=== PATIENT | female | born 1965 | race Two or more races ===

== ENCOUNTER 2020-05-17 09:37 | Day surgery (SDC) | payer OTHER ==
[~2020-05-17 09:37] MED LIST: FENOFIBRATE145 MG PO; ZESTRIL10 M1 PO
== END 2020-05-17 21:00 | disposition home or self-care (01) ==
LOC: CIR.AMB 09:37
PROVIDERS: ATTEND Obstetrics & Gynecology Obstetrics
DX: N85.01 Benign endometrial hyperplasia (principal); Z20.828 Contact with and (suspected) exposure to other viral communicable diseases